=== PATIENT | female | born 1950 | race Caucasian/White ===

== ENCOUNTER 2018-04-12 12:24 | Day surgery (SDC) | payer BC ==
[~2018-04-12 12:24] MED LIST: ACETAMINOPHEN 1,000 MG/100 ML BTL IV ONE; CEFAZOLIN 2 Gram 2 GM/50 ML BAG IVPB ONE
[2018-04-12] MEDS ORDERED: BUPIVACAINE 0.5% W/EPI MPF 30 ML VIAL IVP ONE (12:25)
[2018-04-12] MEDS ORDERED: EPHEDRINE SULFATE 50 MG/ML ML IV ONE (12:25)
[2018-04-12] MEDS ORDERED: LIDOCAINE 2% MDV (20MG/ML) 20ML VIAL IV ONE (12:25)
[2018-04-12] MEDS ORDERED: KETOROLAC 30 MG/ML VIAL IVP ONE (12:25)
[2018-04-12] MEDS ORDERED: PROPOFOL 10 MG/ML VIAL IV ONE (12:25)
--- NOTE | 2018-04-14 10:10 | Operative Note ---
DATE OF SURGERY: 04/12/2018 PREOPERATIVE DIAGNOSES: 1. Left olecranon bursitis. 2. Left olecranon spur. POSTOPERATIVE DIAGNOSES: 1. Left olecranon bursitis. 2. Left olecranon spur. OPERATION: 1. Excision of left olecranon bursa. 2. Excision of left olecranon spur. Staff Surgeon: Joaquin Pulido MD Anesthesia: General. Preparation: Chloraprep. Individual Considerations: None. PROCEDURE: The patient was taken to the operating room and placed supine on the operating room table. She had a successful induction of a general anesthetic. The left lower extremity was prepped and draped in the usual fashion. The patient had an incision directly over the olecranon tip which is about 4-5 cm. The skin was infiltrated with 0.5% Marcaine with epinephrine prior. Sharp dissection carried down just through the skin. Once through the skin, I used scissors dissection to isolate out the bursa, which was in some areas almost 1.5 cm thick. This was removed. I then could palpate the spur. I used a small osteotome to remove it and then smoothed it off with a Rongeur. After irrigation, I went ahead and just closed the skin with interrupted 3-0 nylon in a vertical mattress fashion. A sterile bulky compressive dressing was applied. The patient tolerated procedure well. Needle and sponge counts were correct. Estimated blood loss was minimal. She was taken back to recovery in good condition. There were no complications. DIANNE
== END 2018-04-12 15:05 | disposition home or self-care (01) ==
LOC: SUR 12:24
PROVIDERS: ATTEND Orthopaedic Surgery
DX: M70.22 Olecranon bursitis, left elbow (principal); M25.721 Osteophyte, right elbow; G25.81 Restless legs syndrome; K21.9 Gastro-esophageal reflux disease without esophagitis; Z86.711 Personal history of pulmonary embolism
CPT/HCPCS: 24105; 24120; 01740; J1885; J0690